=== PATIENT | male | born 2000 | race Caucasian/White ===

== ENCOUNTER 2024-08-26 04:31 | Day surgery (SDC) | payer OTHER, SELFPAY ==
[2024-08-25 21:38] VITALS: BP 129/60
[2024-08-25 22:49] LABS: Hematocrit 46.8 % (39.0-52.0); Hemoglobin 16.3 g/dL (13.0-18.0); Mean Corp Hgb Conc. 34.8 g/dL (33.0-37.0); Mean Corpuscular Volume 90.0 fL (80.0-94.0); Nucleated Red Blood Cells % 0 % (-); Platelet Count 213 10^3/uL (130-400); Red Cell Dist. Width 11.5 % (11.5-14.5)
[2024-08-25 23:12] LABS: ALT (SGPT) 34 U/L (0-50); AST (SGOT) 40 U/L (17-59); Albumin 5.6 g/dl (3.5-5.0); Alkaline Phosphatase 90 U/L (38-126); Blood Urea Nitrogen 18 mg/dl (9-20); Calcium 9.9 mg/dl (8.4-10.2); Carbon Dioxide 30 mmol/L (22-30); Chloride 105 mmol/L (98-107); Glucose 104 mg/dl (70-99); Potassium 5.5 mmol/L (3.5-5.1); Sodium 143 mmol/L (135-145); Total Protein 8.0 g/dl (6.3-8.2); eGFR > 60.00
[2024-08-25 23:24] LABS: Troponin I < 0.012 ng/ml
[2024-08-26] VITALS (8 sets, daily range): BP systolic 121–161; BP diastolic 65–84; BMI 23.5
--- NOTE | 2024-08-26 00:44 | ED.GENMED ---
History of Present Illness
General
Chief Complaint: Chest Problem
Source: patient, significant other (Girlfriend states he was eating chicken at 745/8 PM) and family (Mother)
Exam Limitations: none
Time Seen by Provider: 08/26/24 00:20
Nursing documentation reviewed up to this point in time: agreed with
History of Present Illness
History of Present Illness:
23-year-old male presents emergency department due to vomiting after eating chicken. He states he vomited up some of the chicken, feels like something is still stuck. This occurred at 8 PM. He is not tolerating liquids.
Past History
Past History
ED Past Medical History: None
ED Past Surgical History: None
Social History
Tobacco: Non-smoker
Alcohol: None
Drug: None
Living: with family
Review of Systems
Review of Systems
Allergies reviewed?: Yes
All Other Systems: Not applicable
Constitutional: Reports no symptoms
EENT: Reports no symptoms
Respiratory: Reports no symptoms
Cardiac: Reports no symptoms
ABD/GI: Reports vomiting
: Reports no symptoms
Musculoskeletal: Reports no symptoms
Skin: Reports no symptoms
Neurological: Reports no symptoms
Endocrine: Reports no symptoms
Hematologic/Lymphatic: Reports no symptoms
Psychiatric: Reports no symptoms
Phy Exam
Physical Exam
Physical Exam:
Physical Exam
General: Appears uncomfortable
Neck: supple. no meningeal signs. normal posterior pharynx
Heart: s1/s2 regular rate and rhythm, no murmur. equal radial
pulses.
HEENT: Pupils equal round reactive to light, EOMI
Lungs: no acute respiratory distress. clear bilaterally
Abdomen: normal bowel sounds. not tender. no CVAT
Neuro: alert and oriented. no focal neurological deficits cranial nerves II through XII intact
Skin: no rash
Psychiatric: well kept. interactive and cooperative
Extremities: no edema. no calf tenderness. negative homans. good distal pulses
Course
Orders/Labs/Results
Orders:
Orders
08/25/24 21:40
Electrocardiogram (*1) Urgent
Reason for Study: Chest Pain
Cardiac Monitoring- Treatment ONCE
EKG- Treatment ONCE
IV Insert/Care/Rem.- Treatment PRN
O2 Therapy [RESP] Urgent
Titrate/Wean O2 to maintain O2 sat greater than (%): 90
Special Instructions: Maintain sats >/=90%
Pulse Ox/spot Check [RESP] Urgent
Quantity: 1
Special Instructions: ON ROOM AIR
08/25/24 22:38
Complete Blood Count/With Diff Urgent
Comprehensive Metabolic Panel Urgent
Troponin I Urgent
08/26/24 00:20
Glucagon [GlucaGen] 1 mg IV NOW STA
Glucagon [GlucaGen] 1 mg IV NOW STA
08/26/24 00:21
IV Insert/Care/Rem.- Treatment PRN
Abnormal Lab Results
08/25/24
22:38
MCH 31.3 H pg
(27.0-31.0)
MPV 11.0 H fL
(7.4-10.4)
Absolute Lymphs (auto) 0.9 L 10^3/uL
(1.2-3.4)
Lymphocytes % 18.0 L %
(20.5-51.1)
Potassium 5.5 H mmol/L
(3.5-5.1)
Glucose 104 H mg/dl
(70-99)
Albumin 5.6 H g/dl
(3.5-5.0)
08/25/24 22:38
08/25/24 22:38
Vital Signs
Initial and Last Documented VS:
Initial Vital Signs
Temp Pulse Resp BP Pulse Ox
98.3 F 66 18 129/60 99
08/25/24 21:38 08/25/24 21:38 08/25/24 21:38 08/25/24 21:38 08/25/24 21:38
Last Documented Vital Signs
Temp Pulse Resp BP Pulse Ox
98.3 F 69 20 161/84 98
08/25/24 21:38 08/26/24 00:39 08/26/24 00:39 08/26/24 00:39 08/26/24 00:39
MDM/Problems Addressed
Differential Diagnosis Includes:
Gastroenteritis, impacted esophageal food bolus
MDM/Problems Addressed:
23-year-old male with impacted esophageal food bolus. Discussed with gastroenterology, who will take for endoscopy.
*Pulse Oximetry
SaO2: 98
Oxygen Mode of Delivery: Room air
Patient hypoxic: no
*EKG
Interpreted by ED Provider?: Yes
EKG Intrepretation Date: 08/26/24
EKG Intrepretation Time: 21:46
Interpretation: abnormal
Comparison EKG: no comparison EKG present
Heart Rate: 66
Rate: normal
Rhythm: sinus
Ida: right axis deviation
Interval: normal interval
QRS Pattern: normal QRS
Ischemia: no ischemia
*Mica Washer Gluer Interpretation
Rate: normal
Interpretation: normal
Heart Rate: 62
Rhythm: sinus
*Critical Care Note
Total Time (30-74mins, 75-104mins- exclusive of procedures): Not Applicable
Patient Management
Social determinants of health affecting care: Living situation and Strong social support
Escalation/DeEscalation of care consider admission/obs:
admit to GI lab
ED Attending Note
-
Portions of this chart may have been created with voice recognition software.� Occasional wrong word or��sound alike� substitutions may have occurred due to the inherent limitations of voice recognition software.
Discharge Plan
Departure
Patient Disposition: GI LAB
Date of Disposition: 08/26/24
Time of Disposition: 00:48
Admit to: GI lab
Presentation/result/management discussed w/ accepting MD/DO: KATLYN, Dr. Vernon
Patient with high blood pressure during this ER visit?: Yes
Condition: Good
Discharge Problem:
Food impaction of esophagus
Interventions
Interventions:
*Risk Screen - Suicide Last Done: 08/25/24 21:38
*General Assessment Last Done: 08/26/24 00:07
*Neglect/Abuse Screening Last Done: 08/25/24 21:38
*ED- Fall Risk Assessment Last Done: 08/26/24 00:07
*ED COVID-19 Vaccine History Last Done: 08/26/24 00:07
ED- Cardiac Assessment Last Done: 08/26/24 00:07
ED- Pulmonary Assessment Last Done: 08/26/24 00:07
Discharge Date and Time
Print Language: SLOVAK
--- NOTE | 2024-08-26 03:27 | CON.GI ---
Consultation
-
Date/Time Consultation Requested: 08/26/2024
Date/Time Consultation Performed: 08/26/2024
Requesting Provider:
Performing Provider:
Reason for Consultation: Food impaction esophagus
Medical History
Chief Complaint / HPI
History of Present Illness:
This is a very pleasant 23-year-old male with no significant past medical history who presented to the emergency room after he had eaten dinner chicken sandwich around 8 PM and felt that it was stuck and he was unable to swallow secretions after
that and spitting into cup. He did receive 2 doses of glucagon in the ER without any improvement and feels that the food is still stuck. He also denies any known food allergies or asthma. he has no prior history of food bolus impactions. He does
have reflux and takes antacids as needed. He denies any prior history of dysphagia. He also denies any chest pain or shortness of breath no abdominal pain. He has no rectal bleeding or melena his bowel movements are usually regular.
Past Medical History
Past Medical History: None
Past Surgical History: Other (wisdom tooth extraction)
Social History
Tobacco: Non-Smoker
Alcohol: Occasional
Drug: None
Personal: Single
Living: With Family
Family History
Family History: Reviewed & Not Pertinent
Allergies / Home Medications
Allergy/AdvReac Type Severity Reaction Status Date / Time
No Known Allergies Allergy Unverified 08/25/24 21:37
�Medication �Instructions �Recorded
No Meds [No Current Medications] 08/26/24
Review of Systems
-
All other systems: A 12 pt ROS was Negative except as stated above in HPI
Vital Signs
Temp Pulse Resp BP Pulse Ox
98.3 F 55 13 145/76 98
08/25/24 21:38 08/26/24 01:30 08/26/24 01:30 08/26/24 01:00 08/26/24 02:05
Physical Exam
Exam
General: No Apparent Distress
HEENT: Normocephalic
Respiratory: Clear
Cardiac: S1/S2
GI: Soft, Non Tender, Non Distended and Normal Bowel Sounds
Musculoskeletal: No Clubbing
Skin: Warm
Neuro: Awake, Alert and Oriented
Psych: Calm
Results
WBC 5.2 10^3/uL (4.8-10.8) 08/25/24 22:
Hgb 16.3 g/dL (13.0-18.0) 08/25/24 22:
Hct 46.8 % (39.0-52.0) 08/25/24:
MCV 90.0 fL (80.0-94.0) 08/25/24 22:
Plt Count 213 10^3/uL (130-400) 08/25/24 22:
Absolute Neuts (auto) 3.6 10^3/uL (1.4-6.5) 08/25/24 22:38
Sodium 143 mmol/L (135-145) 08/25/24:
Potassium 5.5 mmol/L (3.5-5.1) H 08/25/24:38
Chloride 105 mmol/L (98-107) 08/25/24:
Carbon Dioxide 30 mmol/L (22-30) 08/25/24:
BUN 18 mg/dl (9-20) 08/25/24 22:
Creatinine 1.0 mg/dL (0.7-1.3) 08/25/24:
Calcium 9.9 mg/dl (8.4-10.2) 08/25/24:
Total Bilirubin 0.6 mg/dl (0.2-1.3) 08/25/24 22:38
AST 40 U/L (17-59) 08/25/24:
ALT 34 U/L (0-50) 07/08/25 22:38
Alkaline Phosphatase 90 U/L (38-126) 08/25/24 22:38
Diagnostic Image Results:
Prior GI Procedures:
EGD: none
Colonoscopy: none
Assessment / Plan
-
Food bolus impaction after eating chicken sandwich around 8 PM for dinner and is unable to swallow secretions. Will schedule him for urgent endoscopy with removal of food bolus. He has no prior history of food bolus impactions or dysphagia
symptoms but need to rule out possible EOE or Schatzki's ring less likely stricture or motility disorder. He does have reflux and uses antacids as needed but if he does have evidence of reflux esophagitis will start him on PPI daily.
-
-
Thank you for consultation and allowing me to participate in the patient's care. Please call the transportation aid GI physician during the after hours with any questions or concerns.
== END 2024-08-26 04:41 | disposition home or self-care (01) ==
LOC: PACU 04:31
PROVIDERS: Emergency Medicine; ATTENDING PHYSICIAN Internal Medicine; EMERGENCY PHYSICIAN Emergency Medicine
DX: K20.0 Eosinophilic esophagitis (principal); T18.2XXA Foreign body in stomach, initial encounter; W44.F3XA Food entering into or through a natural orifice, initial encounter; K22.89 Other specified disease of esophagus; R13.14 Dysphagia, pharyngoesophageal phase
CPT/HCPCS: 43239; 80053; 84484; 85025; 88305; 93005; 94760; 96374; 99285; J1610